=== PATIENT | female | born 1945 | race Caucasian/White ===

== ENCOUNTER 2021-05-14 03:21 | Emergency (ER) | payer MEDICARE ==
[~2021-05-14] VITALS: Ht 170.2 cm; Wt 74.8 kg
--- NOTE | 2021-05-14 03:33 | NUR ---
Dr. Moulton at bedside for MSE.
[2021-05-14] MEDS ORDERED: SUMA100T PO (03:36)
--- NOTE | 2021-05-14 03:44 | NUR ---
Xray at bedside.
[2021-05-14] MEDS ORDERED: NITROGLYCERIN 0.4 MG/TAB BOTTLE SL ONE ×3 (03:45→04:00)
[2021-05-14 03:47] LABS: HEMATOCRIT 42.2 % (31.2-41.9); MEAN CORPUSCULAR HEMOGLOBIN 28.9 uug (24.7-32.8); MEAN CORPUSCULAR VOLUME 88.2 fL (75.5-95.3); PLATELET COUNT (AUTO) 300 K/uL (179-408)
--- NOTE | 2021-05-14 03:50 | NUR ---
Patient states chestpain reduced to a 5, blood pressure 151/92. MD made aware, administered second dose of nitroglycerin sublingually.
[2021-05-14 03:52] LABS: CREATININE 0.9 mg/dL (0.6-1.3)
--- NOTE | 2021-05-14 04:55 | NUR ---
Called [facility] to page Umesh Jalloh DNP.
--- NOTE | 2021-05-14 05:30 | NUR ---
Dr. Moulton on panel call with Umesh Jalloh DNP. Patient accepted for admission to [facility], diagnosis: chest pain.
[2021-05-14] MEDS ORDERED: NITROGLYCERIN 0.4 MG/TAB BOTTLE SL PRN (05:45)
[2021-05-14] MEDS ORDERED: ACETAMINOPHEN 325 MG TABLET PO PRN (05:45)
[2021-05-14] MEDS ORDERED: ONDANSETRON 4 MG/2 ML VIAL IV PRN (05:45)
[2021-05-14] MEDS ORDERED: Z GUARD REMEDY PASTE 57 GM TUBE TOP PRN (05:45)
[2021-05-14] MEDS ORDERED: MAGNESIUM HYDROXIDE 30 ML LIQUID UDC PO PRN (05:45)
--- NOTE | 2021-05-14 06:42 | NUR ---
Report given to Mike Knowles.
[2021-05-14] MEDS ORDERED: PANTOPRAZOLE SODIUM 40 MG TABLET.DR PO SCH (07:00)
--- NOTE | 2021-05-14 07:05 | NUR ---
PT IS RESTING IN BED COMFORTABLY. NO S/S OF ACUTE DISTRESS AT THIS TIME. PT's SON AT THE BEDSIDE.
[2021-05-14] MEDS ORDERED: PANTOPRAZOLE SODIUM 40 MG TABLET.DR PO ONE (07:10)
--- NOTE | 2021-05-14 11:19 | NUR ---
PT WAS RE-EVALUATED BY DR SUNSHINE. PT WAS D/C'd TO HOME. D/C INSTRUCTIONS GIVEN TO THE PT BY DR SUNSHINE. PT DENIES PAIN. NO SOB, NO N/V, GAIT IS STABLE. PT LEFT HOSPITAL ER WITH HER SON BY CAR.
[2021-05-14 11:21] VITALS: BP 133/76
[2021-05-15] MEDS ORDERED: ASPIRIN 325 MG TABLET PO SCH (09:00)
== END 2021-05-14 11:21 | disposition home or self-care (01) ==
LOC: ER 03:29
DX: R07.9 Chest pain, unspecified (principal); Z20.822 Contact with and (suspected) exposure to COVID-19; G43.909 Migraine, unspecified, not intractable, without status migrainosus; R94.31 Abnormal electrocardiogram [ECG] [EKG]; R03.0 Elevated blood-pressure reading, without diagnosis of hypertension
CPT/HCPCS: 36415; 70030-TC; 71045; 85025; 93005; A4663